=== PATIENT | male | born 1975 | race Asian ===

== ENCOUNTER 2021-07-20 10:58 | Emergency (ER) | payer BC, SELFPAY ==
--- NOTE | 2021-07-20 13:07 | HMH.EDUTC ---
[facility] [place] Clinical Impression: Gout attack Qualifiers: Gout site: foot Gout etiology: unspecified cause Laterality: left Qualified Code(s): M10.9 - Gout, unspecified Disposition: Home, Self-Care Condition on Discharge: Good Instructions: Gout, DI for Gout, Prednisone, Methylprednisolone Injection Additional Instructions: Rest the extremity, Elevate the extremity as tolerated while you are resting. Take the medication as directed. Please wait to start it tomorrow since you had the steroid injection here today. If your symptoms are not beginning to improve within the next 48 to 72 hours please return for further evaluation. Follow up with your regular doctor. GO TO THE ER FOR ANY WORSENING SYMPTOMS Prescriptions: predniSONE [Prednisone 10mg Tab Dose-Pack] 10 mg PO DAILY 6 Days #1 packet Transmission Status: Received by [id number] Referrals: Provider,Referral, [Primary Care Provider] - Time of Disposition: 13:25 Medical Decision Making - Medical Records Medical records reviewed: No: I reviewed the patient's medical records. - Dami Inquiry Pt receiving controlled substance: No Vital Signs: 07/20/21 13:13 Temperature 98 F Temperature Source Oral Pulse Rate [Left] 78 Respiratory Rate 18 Blood Pressure [Right Arm] 171/67 H Blood Pressure Mean [Right Arm] 101 02 Sat by Pulse Oximetry 96 Orders (Tests/Meds): ED MEDICATIONS Discontinued Medications Generic Name Dose Route Start Last Admin Trade Name Drew PRN Reason Stop Dose Admin Methylprednisolone Sodium Succinate 125 mg 07/20/21 13:17 07/20/21 13:29 Methylprednisolone Sod Succ 125mg Vial IM 07/20/21 13:18 125 mg ONCE ONE Administration [facility] [place] HPI - General Stated complaint: left foot pain, no accident Time Seen by Provider: 07/20/21 13:13 - History of Present Illness Provider Complaint: He has a history of gout. It usually affects his feet when he has a flare up. He states that for the past 2 days he has had left foot pain and swelling at the base of his great toe. He states that this is his normal gout symptoms and he usually gets a steroid shot and it gets better. He is not a diabetic. He has been traveling for [place] and he has not been able to follow his low uric acid diet like he normally does. - Related Data Previous Rx's Medication Instructions Recorded predniSONE [Prednisone 10mg Tab 10 mg PO DAILY 6 Days #1 packet 07/20/21 Dose-Pack] Allergies Allergy/AdvReac Type Severity Reaction Status Date / Time No Known Allergies Allergy Verified 07/20/21 13:20 [facility] History - Hepatitis A Screen Attestation statement:: This patient has been screened for Hepatitis A risk factors. I have reviewed the patient's past medical history: Yes ROS Obtained: Yes All systems reviewed & no additional complaints - Constitutional Constitutional: Denies chills, Denies fever(s) - Cardiovascular Cardiovascular: Denies chest pain - Respiratory Respiratory: Denies chest congestion, Denies cough, Denies dyspnea, Denies stridor, Denies wheezing - Musculoskeletal Musculoskeletal: Reports as per HPI - Integumentary/Breasts Skin/Breast: Reports as per HPI Physical Exam - General General appearance: alert, in no apparent distress - Head Head exam: atraumatic, normocephalic, normal inspection - Eye Eye exam: Present: normal appearance, PERRL, EOMI - ENT ENT exam: Present: normal exam, normal oropharynx, mucous membranes moist, TM's normal bilaterally, normal external ear exam - Neck Neck exam: Present: normal inspection, full ROM, trachea midline. Absent: meningismus, lymphadenopathy - Chest Chest inspection: Present: normal inspection, symmetric chest wall rise. Absent: tenderness - Respiratory Respiratory exam: Present: normal lung sounds bilaterally. Absent: respiratory distress - Cardiovascular Cardiovascular exam: Present: regular rate, normal r
[2021-07-20 13:13] VITALS: BP 171/67; PULSE 78; RESP 18; TEMP 36.6; O2SAT 96; BMI 21.1
[2021-07-20 13:45] VITALS: BP 171/67; PULSE 78; RESP 18; TEMP 36.6
== END 2021-07-20 13:50 | disposition home or self-care (01) ==
PROVIDERS: Emergency Provider Nurse Practitioner Family
DX: M10.072 Idiopathic gout, left ankle and foot (principal)
CPT/HCPCS: 96372; 99202; G0463